=== PATIENT | male | born 1935 | race Caucasian/White ===

== ENCOUNTER 2019-04-24 14:51 | Inpatient (IN) | payer MEDICARE, OTHER ==
--- NOTE | 2019-04-24 15:49 | RAD ---
4 views right elbow. HISTORY: Fall. AP, lateral and both oblique views right elbow obtained. 4 views right elbow demonstrate no evidence of right elbow fractures, subluxations or bony lesions. IMPRESSION: normal 4 views right elbow.
--- NOTE | 2019-04-24 15:53 | RAD ---
Lumbar spine 2 views: 04/24/2019 COMPARISON: 11/14/2017 HISTORY: Fall, trauma, pain FINDINGS: As seen on the prior examination, there is lumbar dextroscoliosis. There is multilevel disc space narrowing and lateral osteophyte formation, particularly left-sided, most prominent at L1-2, L2-3, and L3-4. Lateral examination demonstrates multilevel disc space narrowing and degenerative endplate change, mo st prominent at the L5-S1 level. There is a vacuum disc noted at L5-S1. There is multilevel lower lumbar spine facet hypertrophy. No acute lumbar spine fracture. There is atherosclerotic calcificatio n of the abdominal aorta and the arterial structures of the pelvis. There is anterolisthesis of L4 on L5 measuring approximately 6 mm. Impression: Lumbar spine degenerative change. No acute lumbar spine fracture.
--- NOTE | 2019-04-24 15:55 | RAD ---
2 views left hip HISTORY: Working yard with fall left hip pain. AP and lateral views left hip is obtained. There is a moderately displaced comminuted left intertrochanteric fracture. The base of the femoral n norris is fractured as well as the lesser trochanter. IMPRESSION: comminuted proximal left femoral intertrochanteric fracture.
--- NOTE | 2019-04-24 16:03 | RAD ---
Frontal radiograph pelvis: 04/24/2019 HISTORY: Fall, trauma, pain FINDINGS: There is a comminuted intertrochanteric fracture of the proximal left femur. The pelvic rin g is intact with no widening of the sacroiliac joints or the pubic symphysis. IMPRESSION: Comminuted intertrochanteric fracture of the proximal left femur.
[2019-04-24] MEDS ORDERED: Ondansetron PF 4 MG/2 ML Vial ONE (16:21)
[2019-04-24] MEDS ORDERED: Morphine 4 MG/ML VIAL ONE ×2 (16:21→18:11)
--- NOTE | 2019-04-24 18:03 | RAD ---
EXAM: Single view of the chest HISTORY: Fall with chest pain COMPARISON: None FINDINGS: Single view of the chest shows a normal sized cardiomediastinal silhouette. There is no pedro luis dence of consolidation, mass, or pleural effusion. The bones are unremarkable. IMPRESSION: No evidence of acute cardiopulmonary disease
[2019-04-24 18:16] LABS: #Basophils 0.1 thou/uL (0.0-0.2); #Eosinphils 0.1 thou/uL (0.0-0.7); #Lymphocytes 1.3 thou/uL (1.20-3.40); %Basophils 0.4 % (0.0-1.0); %Eosinophils 0.7 % (0.0-10.0); %Lymphocytes 7.8 % (21.0-51.0); %Monocytes 6.2 % (0.0-10.0); %Neutrophils 84.9 % (42.0-75.0); Hemoglobin 15.1 g/dL (14.0-18.0); Mean Corpuscular HGB CONC 32.8 g/dL (32.0-36.0); Mean Corpuscular Hemoglobin 30.8 pg (27.0-31.0); Mean Corpuscular Volume 94.1 fL (78.0-98.0); Mean Platelet Volume 7.5 fL (7.4-10.4); Platelet Count 230 thou/uL (130-400); RBC Distribution Width 12.6 % (11.5-14.5); Red Blood Cell (RBC) Count 4.91 mill/uL (4.70-6.10); White Blood Cell (WBC) Count 16.5 thou/uL (4.8-10.8)
[2019-04-24 18:23] LABS: INR-International Normal Ratio 1.1; PTT 26.4 SEC (22.9-36.1); Prothrombin Time 14.1 SEC (12.0-14.7)
[2019-04-24 18:38] LABS: Magnesium 1.9 mg/dL (1.6-2.6); Phosphorus 2.6 mg/dL (2.3-4.7)
[2019-04-24 18:39] LABS: ALT (SGPT) 27 U/L (8-55); AST (SGOT) 49 U/L (5-34); Albumin 3.9 g/dL (3.4-4.8); Alkaline Phosphatase 67 U/L (40-150); Anion Gap 18 mmol/L (10-20); BUN (Urea Nitrogen) 20 mg/dL (8.4-25.7); Bilirubin, Total 0.6 mg/dL (0.2-1.2); Calc. Creatinine Clearance 0 mL/min (70-130); Calcium 8.9 mg/dL (7.8-10.44); Carbon Dioxide 18 mmol/L (23-31); Chloride 106 mmol/L (98-107); Estimated GFR-MDRD 79; Globulin 2.8 g/dL (2.4-3.5); Glucose 107 mg/dL (83-110); Protein, Total 6.7 g/dL (5.8-8.1); Sodium 138 mmol/L (136-145)
[2019-04-24] MEDS ORDERED: hydrALAZINE 20 MG/ML VIAL SLOW IVP PRN (18:47)
[2019-04-24] MEDS ORDERED: Dextrose 5% in Water 1,000 ML IV PRN (18:47)
[2019-04-24] MEDS ORDERED: Ondansetron ODT 4 MG TAB PO PRN (18:47)
[2019-04-24] MEDS ORDERED: Ondansetron PF 4 MG/2 ML Vial IVP PRN (18:47)
[2019-04-24] MEDS ORDERED: Dextrose 50% Abboject 50 ML SYRINGE SLOW IVP PRN (18:47)
[2019-04-24] MEDS ORDERED: traMADol HCl 50 MG TAB PO PRN (18:52)
[2019-04-24] MEDS ORDERED: Acetaminophen 500 MG TAB PO SCH (19:00)
[2019-04-24] MEDS ORDERED: Ibuprofen 600 MG TAB PO SCH ×2 (19:00→22:15)
[2019-04-24] MEDS ORDERED: traMADol HCl 50 MG TAB PO SCH (19:00)
[2019-04-24] MEDS ORDERED: Ketorolac Tromethamine 15 MG/ML VIAL IVP SCH (19:00)
[2019-04-24] MEDS ORDERED: Morphine 2 MG/ML SYRINGE SLOW IVP PRN (19:01)
[2019-04-24] MEDS ORDERED: Ketorolac Tromethamine 30 MG/ML VIAL IVP SCH (19:15)
[2019-04-24] MEDS: Senokot S 8.6-50 MG TAB PO SCH (22:00)
[2019-04-24] MEDS: Sodium Chloride 0.9% 1,000 ML IV SCH (22:31)
[2019-04-24] MEDS: traMADol HCl 50 MG TAB PO SCH (23:02)
[2019-04-24] MEDS: Acetaminophen 500 MG TAB PO SCH (23:02)
[2019-04-25 00:38] VITALS: BMI 25.7
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
[2019-04-25] MEDS: Sodium Chloride 0.9% 1,000 ML IV SCH ×3 (04:14→18:18)
[2019-04-25] MEDS: Ibuprofen 600 MG TAB PO SCH ×3 (05:02→21:01)
[2019-04-25] MEDS: Acetaminophen 500 MG TAB PO SCH ×3 (05:02→18:27)
[2019-04-25] MEDS: traMADol HCl 50 MG TAB PO SCH ×3 (05:03→18:23)
[2019-04-25] MEDS: Morphine 4 MG/ML VIAL SLOW IVP PRN ×2 (05:35→10:34)
[2019-04-25 05:53] LABS: #Eosinphils 0.1 thou/uL (0.0-0.7); #Lymphocytes 1.7 thou/uL (1.20-3.40); #Neutrophils 6.8 thou/uL (1.40-6.50); %Basophils 0.5 % (0.0-1.0); %Eosinophils 1.4 % (0.0-10.0); %Lymphocytes 17.2 % (21.0-51.0); %Monocytes 10.6 % (0.0-10.0); %Neutrophils 70.3 % (42.0-75.0); Hemoglobin 12.8 g/dL (14.0-18.0); Mean Corpuscular HGB CONC 32.9 g/dL (32.0-36.0); Mean Corpuscular Hemoglobin 30.5 pg (27.0-31.0); Mean Corpuscular Volume 92.8 fL (78.0-98.0); Mean Platelet Volume 7.9 fL (7.4-10.4); Platelet Count 208 thou/uL (130-400); RBC Distribution Width 12.6 % (11.5-14.5); Red Blood Cell (RBC) Count 4.21 mill/uL (4.70-6.10); White Blood Cell (WBC) Count 9.7 thou/uL (4.8-10.8)
[2019-04-25 06:06] LABS: Anion Gap 9 mmol/L (10-20); BUN (Urea Nitrogen) 23 mg/dL (8.4-25.7); Calc. Creatinine Clearance 67 mL/min (70-130); Carbon Dioxide 25 mmol/L (23-31); Chloride 107 mmol/L (98-107); Estimated GFR-MDRD 81; Glucose 110 mg/dL (83-110); Magnesium 1.9 mg/dL (1.6-2.6); Phosphorus 3.7 mg/dL (2.3-4.7); Sodium 137 mmol/L (136-145)
[2019-04-25] MEDS ORDERED: CEFAZOLIN 2 GM in Premix Bag 1 BAG IVPB SCH (07:15)
--- NOTE | 2019-04-25 09:08 | PDOC.GSPN ---
Surgery Progress Note: Subj - Subjective Narrative: Patient seen and examined. Pain controlled. Surgery today Surgery Progress Note: Obj - Vital signs Vital signs: Vital Signs - Most Recent Temp Pulse Resp BP Pulse Ox 97.7 F 68 12 112/55 L 94 L 04/25/19 07:20 04/25/19 07:20 04/25/19 07:20 04/25/19 07:20 04/25/19 07:20 - Physical Exam General: no distress Cardiovascular: regular rate and rhythm Respiratory: clear to auscultation Surgery Progress Note: Results - Labs Result Diagrams: 04/25/19 04:22 04/25/19 04:22 Lab results: Laboratory Results - last 24 hr 04/25/19 04/25/19 04:22 04:22 WBC 9.7 RBC 4.21 L Hgb 12.8 L Hct 39.1 L MCV 92.8 MCH 30.5 MCHC 32.9 RDW 12.6 Plt Count 208 MPV 7.9 Neutrophils % 70.3 Lymphocytes % 17.2 L Monocytes % 10.6 H Eosinophils % 1.4 Basophils % 0.5 Neutrophils # 6.8 H Lymphocytes # 1.7 Monocytes # 1.0 H Eosinophils # 0.1 Basophils # 0.0 Sodium 137 Potassium 4.0 Chloride 107 Carbon Dioxide 25 Anion Gap 9 L BUN 23 Creatinine 0.90 Estimated GFR (MDRD) 81 Glucose 110 Calcium 9.0 Phosphorus 3.7 Magnesium 1.9 Surgery Progress Note: A/P - Problem (1) Hip fracture Current Visit: Yes Code(s): S72.009A - FRACTURE OF UNSP PART OF NECK OF UNSP FEMUR, INIT Status: Acute - Plan Plan: To OR today Rehab screen
[2019-04-25] MEDS: Ferrous Sulfate 325 MG TAB PO SCH ×2 (10:13→18:26)
[2019-04-25] MEDS: Ascorbic Acid 500 mg Chewable Tablet PO SCH ×2 (10:14→20:54)
[2019-04-25] MEDS: Polyethylene Glycol 3350 17 GM Packet PO SCH (10:14)
[2019-04-25] MEDS: Senokot S 8.6-50 MG TAB PO SCH ×2 (10:15→20:54)
[2019-04-25] MEDS: Tamsulosin HCl 0.4 MG CAP PO SCH ×2 (10:17→18:32)
--- NOTE | 2019-04-25 11:08 | CON ---
DATE OF CONSULTATION: 04/24/2019 REQUESTING PHYSICIAN: Gentry Hall MD BRIEF HISTORY OF PRESENT ILLNESS: The patient is a pleasant 83-year-old gentleman who was examined in the emergency room at [facility] at the request of Dr. Gentry Hall. The patient reports that he was working on his land, cutting down and trimming some trees when he caught his foot tangled in some verena, fell, landing on the left hip. He reports immediate pain and inability to ambulate. Upon arrival at [facility], x-rays demonstrated an intertrochanteric femur fracture with displacement. The patient also found to have some mild skin tears at the right elbow. The patient now admitted to the Trauma Service and Orthopedic consultation requested. PAST MEDICAL HISTORY: Remarkable for chronic low back pain as well as some urinary retention. PAST SURGICAL HISTORY: Includes transurethral resection of prostate, back surgery, left knee replacement, right knee replacement, tonsillectomy, cholecystectomy, as well as cervical spine fusion. MEDICATIONS: Flomax. ALLERGIES: NONE KNOWN. SOCIAL HISTORY: He lives at home alone. He is able to care for himself. He does not use assistive devices for ambulation. He denies alcohol, tobacco, or drug use. FAMILY HISTORY: Noncontributory. REVIEW OF SYSTEMS: Denies recent fevers, chills, or sweats. Denies chest pain or shortness of breath. Denies numbness or tingling in the lower extremity. PHYSICAL EXAMINATION: VITAL SIGNS: His heart rate is 83, respiratory rate of 18, temperature 98, and blood pressure 172/99 in the emergency room. HEENT: Atraumatic and normocephalic. HEART: Shows a regular rate and rhythm without murmur. LUNGS: Clear to auscultation bilaterally with good breath sounds. Chest wall is nontender. ABDOMEN: Flat and nontender with normal bowel sounds. PELVIS: Stable to compression with no pain, except mild referred pain to the left hip. EXTREMITIES: Remarkable for a left upper extremity that is atraumatic. The right upper extremity with a lateral elbow skin avulsion, but otherwise no bony deformity at the upper arm, forearm, or hand. The right lower extremity is atraumatic at hip, knee, ankle, and foot. The left lower extremity is remarkable for a hip, that is held externally rotated and slightly shortened. The knee itself appears atraumatic with a well-healed anterior midline incision. Ankle and foot also atraumatic. He has intact sensation distally. He is able to wiggle his toes comfortably. His thigh and lower leg compartments are soft. X-RAYS: While in the emergency room, a four-view elbow x-ray was obtained that shows normal bony anatomy with no evidence of fracture. Two-view left hip as well as AP pelvis x-ray also obtained. These show an intertrochanteric femur fracture with extension into the lesser trochanter. LABORATORY DATA: He was found to have a white count of 16.5, a hematocrit of 46.2, and 230,000 platelets. ASSESSMENT: An 83-year-old gentleman, status post ground level fall sustaining left intertrochanteric femur fracture. PLAN: At this time, the patient will be admitted to the Trauma Service. I would like to make him n.p.o. after midnight with plans to proceed to the operating room tomorrow early afternoon for anticipated intramedullary hip screw for this intertrochanteric femur fracture. Today, I discussed with the patient risks and benefits of the procedure. Risks include, but are not limited to bleeding, infection, nerve injury, DVT, PE, malunion, nonunion, loss of limb or life. The patient appears to understand and does wish to proceed. Written consent will be obtained prior to surgery. Job ID: [id number]
[2019-04-25] MEDS ORDERED: Fentanyl 100 MCG/2 ML VIAL ONE ×3 (12:12→14:09)
--- NOTE | 2019-04-25 13:30 | RAD ---
XR Hip Lt 2-3 View History: ORIF Comparison: Radiograph prior day Findings: Satisfactory postoperative appearance intramedullary nail through the intertrochanteric fra cture left femur. Impression: Satisfactory postoperative appearance.
[2019-04-25] MEDS ORDERED: Promethazine HCl 25 MG/ML VIAL ONE (13:49)
[2019-04-25] MEDS ORDERED: Promethazine HCl 25 MG/ML VIAL SLOW IVP PRN (13:52)
[2019-04-25] MEDS ORDERED: Promethazine HCl 25 MG/ML VIAL IM PRN (13:52)
[2019-04-25] MEDS ORDERED: PACU-Morphine 4MG/ML VIAL SLOW IVP PRN (13:52)
[2019-04-25] MEDS ORDERED: Ketorolac Tromethamine 30 MG/ML VIAL IVP PRN (13:52)
[2019-04-25] MEDS ORDERED: Rocuronium Bromide 10 MG/ML (10ML VIAL) ONE (17:07)
[2019-04-25] MEDS ORDERED: PROPOFOL 200 MG/20 ML VIAL ONE (17:07)
[2019-04-25] MEDS ORDERED: Glycopyrrolate 0.2 MG/ML 5 ML SYRINGE ONE (17:07)
[2019-04-25] MEDS ORDERED: Lidocaine 1% PF 5 ML VIAL ONE (17:07)
[2019-04-25] MEDS ORDERED: ePHEDrine 50 MG/ML VIAL ONE (17:07)
[2019-04-25] MEDS ORDERED: Ondansetron PF 4 MG/2 ML Vial ONE (17:07)
[2019-04-25] MEDS: CEFAZOLIN 2 GM in Premix Bag 1 BAG IVPB SCH (20:51)
--- NOTE | 2019-04-25 23:16 | OP ---
DATE OF PROCEDURE: 04/25/2019 PREOPERATIVE DIAGNOSIS: Left intertrochanteric femur fracture. POSTOPERATIVE DIAGNOSIS: Left intertrochanteric femur fracture. PROCEDURE PERFORMED: Short TFN nail, left femur. ANESTHESIA: General. COMMUNICATIONS CLERK: Benoit Donald PA-C. ESTIMATED BLOOD LOSS: 50 mL. IMPLANT: Synthes TFN 12 x 170 mm nail with 100 mm hip screw. COMPLICATIONS: None. DRAINS: None. SPECIMEN: None. OUTCOME: Near-anatomic alignment. INDICATIONS: The patient is an 83-year-old gentleman status post ground level fall sustaining a left intertrochanteric femur fracture. After discussion with the patient including risks and benefits, we have decided to proceed with intramedullary hip screw placement. Informed consent has been obtained. I believe all questions have been answered. DESCRIPTION OF PROCEDURE: The patient was brought to the operating room and a time-out was performed followed by induction of general anesthesia. Next, the patient was positioned supine on the OR table and then a sterile prep and drape was performed in the left lateral thigh after the leg was brought into extension and gentle longitudinal traction. Next, a small incision was made proximal to the tip of the greater trochanter. After the skin was sharply incised, dissection was carried down bluntly to the underlying tip of the trochanter. A threaded guidewire was then inserted from the tip of the greater trochanter down the proximal femoral canal. Once appropriately positioned, a reamer was passed over the top of this guidewire to open the tip of the greater trochanter for eventual nail acceptance. Next, a 12 x 170 mm nail was passed down the canal and delivered to an appropriate depth. This was followed by placement of a second incision distal to the first and then the hip screw jig was brought up against the lateral cortex of the femur. A threaded guidewire was then inserted through the lateral cortex of the femur up the femoral neck into the femoral head approaching a [id number] position. Once appropriately positioned, measurement was taken off this pin and then a step reamer was used to further prepare the femoral neck and head to accept the hip screw. A 100 mm hip screw was then delivered up into the femoral neck and head as checked under C-arm guidance. Gentle compression was then applied across the fracture site. Once appropriately positioned, the jig was removed from the hip screw and then a third more distal incision was made and a single distal cross-lock screw inserted. At the completion of this, the jig was removed from the top of the nail and final AP and lateral C-arm images were obtained that showed near-anatomic alignment of the fracture and appropriate positioning of hardware. The three small wounds were then irrigated with normal saline and closed in layers with 2-0 Vicryl and blue for the skin. Xeroform gauze and tape dressing were applied to the lateral thigh and then the patient was transferred to recovery room in stable condition. There were no complications. The patient tolerated the procedure well. Job ID: [id number]
[2019-04-26] MEDS: Sodium Chloride 0.9% 1,000 ML IV SCH (00:39)
[2019-04-26] MEDS: Acetaminophen 500 MG TAB PO SCH ×4 (00:40→17:12)
[2019-04-26] MEDS: traMADol HCl 50 MG TAB PO SCH ×4 (00:40→17:15)
[2019-04-26] MEDS: CEFAZOLIN 2 GM in Premix Bag 1 BAG IVPB SCH ×3 (03:39→19:25)
[2019-04-26] MEDS: Ibuprofen 600 MG TAB PO SCH ×3 (05:26→20:28)
[2019-04-26] MEDS ORDERED: traMADol HCl 50 MG TAB PO PRN (07:28)
[2019-04-26] MEDS: Ferrous Sulfate 325 MG TAB PO SCH ×2 (09:43→17:12)
[2019-04-26] MEDS: Aspirin 81 mg Enteric Coated Tablet PO SCH ×2 (09:54→20:28)
[2019-04-26] MEDS: Ascorbic Acid 500 mg Chewable Tablet PO SCH ×2 (09:54→20:27)
[2019-04-26] MEDS: Tamsulosin HCl 0.4 MG CAP PO SCH (09:55)
[2019-04-26] MEDS: Senokot S 8.6-50 MG TAB PO SCH ×2 (09:55→20:28)
[2019-04-26] MEDS: Polyethylene Glycol 3350 17 GM Packet PO SCH (09:55)
--- NOTE | 2019-04-26 10:07 | PRG ---
DATE OF SERVICE: 04/26/2019 SUBJECTIVE: The patient was seen this morning sitting up in bed. Reported no acute events overnight. Pain is well controlled. Tolerating a regular diet. Working with Physical and Occupational Therapy. The patient does live at home independently and is interested in being placed at rehab for further physical and occupational therapy. OBJECTIVE: VITAL SIGNS: Temperature 97.9, pulse 81, respirations 12, oxygen saturation 92% on room air, blood pressure 121/63. LABORATORY FINDINGS: There are no new laboratory findings to discuss. DIAGNOSTIC FINDINGS: There are no new diagnostic findings to discuss. ASSESSMENT: 1. Status post mechanical fall from standing. 2. Left intertrochanteric femur fracture, status post repair. 3. Elbow abrasion and skin tear, stable. 4. Urinary retention. PLAN: The patient is to continue to receive physical and occupational therapy. Normal saline IV was discontinued today. Corbin placed overnight by Ortho Service for urinary retention. The patient currently on home Flomax, we will continue that. Discontinue Corbin in 24 to 48 hours, and perform void trial. This can be done at rehab, if needed. The patient is back on all of his home medications. Discontinue all IV medications and transition to completely p.o. medications. The patient was seen and evaluated by Dr. Moody and myself this morning during rounds. Job ID: [id number]
[2019-04-27] MEDS: traMADol HCl 50 MG TAB PO SCH ×3 (00:05→12:13)
[2019-04-27] MEDS: Acetaminophen 500 MG TAB PO SCH ×3 (00:05→12:09)
[2019-04-27] MEDS: CEFAZOLIN 2 GM in Premix Bag 1 BAG IVPB SCH (03:11)
[2019-04-27] MEDS: Ibuprofen 600 MG TAB PO SCH (05:11)
[2019-04-27 05:18] LABS: #Basophils 0.1 thou/uL (0.0-0.2); #Eosinphils 1.1 thou/uL (0.0-0.7); #Lymphocytes 1.2 thou/uL (1.20-3.40); #Monocytes 1.1 thou/uL (0.11-0.59); #Neutrophils 7.6 thou/uL (1.40-6.50); %Basophils 0.6 % (0.0-1.0); %Eosinophils 10.1 % (0.0-10.0); %Lymphocytes 10.8 % (21.0-51.0); %Monocytes 9.6 % (0.0-10.0); %Neutrophils 68.9 % (42.0-75.0); Hemoglobin 11.7 g/dL (14.0-18.0); Mean Corpuscular HGB CONC 32.9 g/dL (32.0-36.0); Mean Corpuscular Hemoglobin 30.7 pg (27.0-31.0); Mean Corpuscular Volume 93.4 fL (78.0-98.0); Mean Platelet Volume 8.1 fL (7.4-10.4); Platelet Count 163 thou/uL (130-400); RBC Distribution Width 12.6 % (11.5-14.5)
[2019-04-27 05:40] LABS: Anion Gap 10 mmol/L (10-20); BUN (Urea Nitrogen) 16 mg/dL (8.4-25.7); Calc. Creatinine Clearance 82 mL/min (70-130); Calcium 8.5 mg/dL (7.8-10.44); Carbon Dioxide 24 mmol/L (23-31); Chloride 107 mmol/L (98-107); Estimated GFR-MDRD Greater than 90; Glucose 94 mg/dL (83-110); Magnesium 1.6 mg/dL (1.6-2.6); Potassium 3.7 mmol/L (3.5-5.1); Sodium 137 mmol/L (136-145)
[2019-04-27] MEDS ORDERED: Magnesium 2 GM/50 ML 2 GM in Premix Bag 1 BAG IVPB SCH (08:00)
[2019-04-27] MEDS ORDERED: PHOS-NAK 1 PKT PACK PO SCH (08:00)
[2019-04-27] MEDS: Ascorbic Acid 500 mg Chewable Tablet PO SCH (08:30)
[2019-04-27] MEDS: Tamsulosin HCl 0.4 MG CAP PO SCH (08:30)
[2019-04-27] MEDS: Ferrous Sulfate 325 MG TAB PO SCH (08:30)
[2019-04-27] MEDS: Senokot S 8.6-50 MG TAB PO SCH (08:30)
[2019-04-27] MEDS: Polyethylene Glycol 3350 17 GM Packet PO SCH (08:30)
[2019-04-27] MEDS: Aspirin 81 mg Enteric Coated Tablet PO SCH (08:30)
[2019-04-27 11:47] VITALS: BP 134/67; TEMP 97.9
--- NOTE | 2019-04-27 12:52 | DIS ---
DATE OF ADMISSION: 04/24/2019 DATE OF DISCHARGE: 04/27/2019 ADMISSION DIAGNOSES: Status post mechanical fall, left intertrochanteric femur fracture, left elbow avulsion, and skin tear. DISCHARGE DIAGNOSES: Status post mechanical fall, left intertrochanteric femur fracture, left elbow avulsion, and skin tear with addition of urinary retention. CONSULTING PHYSICIAN: Dr. Cortez of Orthopedic Surgery. PROCEDURES: The patient went to the OR on April 25, 2019, and the patient received a short TFN nail of the left femur. HOSPITAL COURSE: The patient is an 83-year-old male who presented to the emergency department after mechanical fall when he was picking up branches at his home. The patient reported left hip pain, and it was discovered that he had a left intertrochanteric femur fracture and elbow abrasion with soft tissue skin tear. He was admitted to the hospital, and the patient went to the OR with Dr. Cortez on the , who received a short TFN nail of the left femur. Postoperatively, he worked with Physical and Occupational Therapy. He did have some urinary retention, difficulty voiding postoperatively, and a Corbin catheter was replaced. He was also on his home Flomax at that time. The patient worked with Physical and Occupational Therapy, and it was determined that rehab was the appropriate discharge plan for him. At the time of discharge, the patient's pain was well controlled. He was working with Physical and Occupational Therapy, ambulating with assistance and a walker. He had a Corbin in place with a plan to have it removed on April 28, and he was having bowel movements without difficulties. DISCHARGE DISPOSITION: Acute rehab. DISCHARGE CONDITION: Satisfactory. PHYSICAL EXAMINATION: VITAL SIGNS: Temperature 98.1, pulse 75, respirations 14, oxygen saturation is 94% on room air, and blood pressure 132/68. GENERAL: Well-appearing elderly male, lying in bed with no signs of acute distress. PULMONARY: Equal chest rise and fall. Clear breath sounds bilaterally. No signs of acute respiratory distress. CARDIAC: Regular rate and rhythm. No murmurs, gallops, or rubs. GASTROINTESTINAL: Soft, nontender, nondistended. EXTREMITIES: 2+ pulses in all extremities. No significant swelling noted. Dressing to left thigh is clean, dry, and intact with no signs of infection. NEURO: GCS is 15. Gross motor and sensation intact. DISCHARGE INSTRUCTIONS: The patient was discharged to acute inpatient rehab. Activity as tolerated and weightbearing as tolerated in all extremities. Regular diet with no restrictions. He is to receive physical and occupational therapy and use a walker. He has a Corbin that is in place for urinary retention until April 28, 2019, when a void trial can be completed. DISCHARGE MEDICATIONS: Include: 1. Tylenol. 2. Vitamin C. 3. Aspirin. 4. Ferrous sulfate. 5. Ibuprofen. 6. MiraLAX. 7. Senokot-S. 8. Flomax. 9. Tramadol. 10. Tums. 11. Flonase nasal spray. 12. Zantac. FOLLOWUP APPOINTMENTS: The patient is to follow up with Dr. Cortez in 10 days. This is merely a summary of the patient's hospitalization. For full details, please see his medical record in its entirety. Job ID: [id number]
--- NOTE | 2019-04-27 16:51 | EKG ---
Test Reason : Blood Pressure : / mmHG Vent. Rate : 078 BPM Atrial Rate : 078 BPM P-R Int : 154 ms QRS Dur : 134 ms QT Int : 416 ms P-R-T Axes : 077 049 019 degrees QTc Int : 474 ms Normal sinus rhythm Right bundle branch block Abnormal ECG Confirmed by GIOVANY MANCIA, JEAN King ([id number]), marketing editor QUETA CALLOWAY ([id number]) on 04/27/2019 4:51:24 PM Referred By: Confirmed By:JEAN ADAIR MD
== END 2019-04-27 13:11 | DRG 482 ==
LOC: ERS 14:51 → SJJU 18:00
PROVIDERS: ADMIT Specialist; ATTEND Specialist
PROC: 0QH706Z Insertion of Intramedullary Internal Fixation Device into Left Upper Femur, Open Approach (ICD-10-PCS; principal; 2019-04-25)
PROC: 0T9B70Z Drainage of Bladder with Drainage Device, Via Natural or Artificial Opening (ICD-10-PCS; 2019-04-26)
DX: S72.102A Unspecified trochanteric fracture of left femur, initial encounter for closed fracture (principal); W18.39XA Other fall on same level, initial encounter; G89.29 Other chronic pain; S50.312A Abrasion of left elbow, initial encounter; R33.9 Retention of urine, unspecified; Z96.653 Presence of artificial knee joint, bilateral; Z87.81 Personal history of (healed) traumatic fracture; Y93.89 Activity, other specified; Z90.49 Acquired absence of other specified parts of digestive tract; Z98.890 Other specified postprocedural states
CPT/HCPCS: 36415; 71045; 72100; 72170; 76000; 80048; 80053; 83735; 84100; 85025; 85610; 85730; 86850; 86900; 86901; 93005; 96374; 96375; 96376; C1713; G0390; J0131; J0690; J1885; J2270; J2405; J2550; J3010; J3475

== ENCOUNTER 2019-08-07 08:12 | Outpatient (CLI) | payer MEDICARE, OTHER ==
--- NOTE | 2019-08-07 10:53 | RAD ---
Exam: Barium enema with air-contrast: HISTORY: Chronic constipation FINDINGS: Extensive lumbar spine spondylosis and postop changes at L4-L5. Minimal retained fecal material seen on domestic freight forwarder film imaging. Colonic diverticulosis noted particularly in the sigmoid colon. Contrast media progressed throughout the colon with reflux into a normal-appearing terminal ileum. There is also minimal filling of a normal-appearing appendix. No stricture ulcer or mass. IMPRESSION: Sigmoid colon diverticulosis. No mass, ulcer, or other significant acute process.
== END 2019-08-07 08:13 | disposition home or self-care (01) ==
LOC: RAD 08:12
PROVIDERS: ATTEND Physician Assistant Medical
DX: K59.09 Other constipation (principal); K57.30 Diverticulosis of large intestine without perforation or abscess without bleeding
CPT/HCPCS: 74280

== ENCOUNTER 2020-07-19 10:34 | Observation (INO) | payer MEDICARE, OTHER ==
--- NOTE | 2020-07-19 11:56 | PDOC.FPRHP ---
- History of Present Illness Chief Complaint: lightheadedness History of Present Illness: 85YOM with a PMH notable for Hx of melanoma who presented for an evaluation for lightheadedness with an associated abnormal heart beat. Patient reports that overnight he experienced an episode of lightheadedness while standing up followed by a notification on his apple watch that said his EKG was "inconclusive". He reports that this has happened before-approximately 1X/month- and his watch will say inconclusive but he'll feel better and the watch will go back to reading his HR. This time he continued to feel dizzy and his watch continued to read inconclusive so he went to [place] [facility]. ED Course: In ED patient received ASA. - Allergies/Adverse Reactions Allergies Allergy/AdvReac Type Severity Reaction Status Date / Time hydrocodone [Hydrocodone] Allergy Severe "seeing Verified 04/25/19 00:55 colors" oxycodone Allergy Severe Verified 04/25/19 01:14 ALMONDS Allergy Intermediate "in Uncoded 08/30/16 08:42 allergy season--they make me whezzy" - Home Medications Medication Instructions Recorded Confirmed Type Tamsulosin HCl [Flomax] 0.4 mg PO DAILY cap 04/27/19 07/19/20 Rx Bisacodyl [Dulcolax] 10 mg PO DAILY 07/19/20 07/19/20 History Melatonin PO HS 07/19/20 History Omeprazole 20 mg PO DAILY 07/19/20 07/19/20 History - History PMHx: Hx Melanoma, BPH PSHx: B/L knee replacement, Femur fx repair, Moh's sx for L forehead melanoma, TURP FHx: Mom- from metastatic colon CA at age 73 Social: Quit smoking many years ago. No EtOH or drug use. Lives at home alone in [place], [place]. - Review of Systems General: denies: fever/chills Eyes: denies: vision changes ENT: reports: rhinorrhea Respiratory: denies: cough, shortness of breath Cardiovascular: denies: chest pain, palpitation Gastrointestinal: reports: constipation. denies: nausea, vomiting Skin: denies: rashes, lesions Musculoskeletal: denies: arthritis/arthralgias Neurological: reports: other (no headache) - Vital signs BP: 187/99 HR: 78 RR: 12 Tmax: 98.8 Pox: 99% on RA Wt: 75 kg - Physical Exam Constitutional: NAD, awake, alert and oriented HEENT: normocephalic and atraumatic, grossly normal vision, grossly normal hearing Neck: supple, FROM Heart: RRR, normal S1/S2, no murmurs/rubs/gallops, no edema Lungs: CTAB, no respiratory distress, good air movement, no rales/rhonchi, no wheezing, no retractions Abdomen: soft, non-tender, bowel sounds present, no masses/distention Musculoskeletal: normal structure, ROM grossly normal Neurological: no focal deficit, CN II-XII intact (grossly) Skin: no rash/lesions Heme/Lymphatic: no unusual bruising or bleeding, no purpura Psychiatric: normal mood and affect, good judgment and insight, intact recent and remote memory FMR H&P: Results - Labs Lab results: Trop 0.1 -> <0.01 - EKG Interpretation EKG: multiple PVCs, regular rate and rhythm FMR H&P: A/P - Plan Presyncope - Likely orthostasis vs arrhythmia - Patient reports episodes occur while standing, in the ED room, patient reported an episode after he stood up to use the restroom - admit to tele obs - Check electrolytes-Mg, Phos - Check TSH - Consider ECHO depending on tele strips/sx HTN - pt denies history, 180-190 SBP in ED - PRN medications - Start PO medications in AM after watching trend BPH - Home flomax Constipation - Home dulcolax PRN, Senokot PRN PCP: Chuck-LEDA DVT ppx: SCD GI ppx: TUMS Code: FUll Dispo: eLOS <48 hrs, will be ready to dc pending cessation of symptoms and stable VS. FMR H&P: Upper Level - Plan Date/Time: 07/19/20 1156 IKyung, have evaluated this patient and agree with findings/plan as outlined by integrated marketing intern resident. Pertinent changes/additions are listed here. 85YOM with a PMH notable for BPH who presented to the ED as a transfer from the [place] ER after presenting there for evaluation for an abnormal heart rhythm with associated lightheadedness. Reports he was at home last night and suddenly felt lightheaded like he was going to pass. He then got an EKG alert on his watch that was abnormal. He reports that this has happened before but normally the repeat is back to normal; however, this time the repeat was abnormal so he decided to come in for evaluation. All other ROS was negative other than some hay fever symptoms. On exam his VS were WNLs with the exception of an elevated BP of 173/101. His physical exam was unremarkable. Labs were notable for an initial indeterminate troponin I of 0.113 that downtrended to <0.010. EKG was notable for sinus at a rate of 80 with frequent PVCs & a RBBB. Plan will be to continue monitoring overnight on telemetry. Will check a Mg, phos, & TSH level as well. Lastly, will obtain orthostatic vitals. Regarding his elevated BP will add PRNs & likely start on JENNIFER meds in the AM pending trend overnight. Anticipated LOS <48 hours pending hospital course. PPX: SCDs & tums. FULL CODE. PCP: CC. Chuck Addendum - Attending - Attending Attestation Date/Time: 07/19/201799 I personally evaluated the patient and discussed the management with Dr. Mayen/ Syed. I agree with the History, Examination, Assessment and Plan documented above with any addition or exceptions noted below.
[2020-07-19 12:55] LABS: Bilirubin Negative (Negative); Blood, Urine Negative (Negative); Clarity Clear (Clear); Glucose, Urine (Dipstick) Normal (Negative); Ketone, Urine Negative (Negative); Leukocyte Negative Leu/uL (Negative); Nitrite Negative (Negative); Protein, Urine (Dipstick) Negative (Neg-Trace); Specific Gravity, Urine 1.007 (1.002-1.036); Urobilinogen Normal mg/dL (Less than 2); pH, Urine 5.5 (5.0-9.0)
[2020-07-19] MEDS ORDERED: Acetaminophen 325 MG TAB PO PRN (12:58)
[2020-07-19] MEDS ORDERED: Bisacodyl 5 MG TAB PO PRN (12:58)
[2020-07-19] MEDS ORDERED: Acetaminophen 650 MG Suppository PR PRN (12:58)
[2020-07-19] MEDS ORDERED: Senokot S 8.6-50 MG TAB PO PRN (12:58)
[2020-07-19] MEDS ORDERED: Calcium Carbonate 500 MG ChewTAB PO PRN (12:58)
[2020-07-19] MEDS ORDERED: Labetalol HCl 100 MG/20 ML VIAL SLOW IVP PRN (13:09)
[2020-07-19] MEDS ORDERED: hydrALAZINE 20 MG/ML VIAL SLOW IVP PRN (13:09)
[2020-07-19] MEDS ORDERED: Fluticasone Propionate Nasal Spray 16 gm Bottle NASAL PRN (13:11)
[2020-07-19 13:46] VITALS: BMI 25.0
[2020-07-19 14:47] LABS: Phosphorus 2.8 mg/dL (2.3-4.7)
[2020-07-19] MEDS: Famotidine 20 MG TAB PO SCH (20:02)
[2020-07-19] MEDS ORDERED: Aspirin 81 mg Enteric Coated Tablet PO SCH (21:00)
[2020-07-19] MEDS ORDERED: Melatonin 3 MG TAB PO SCH (21:00)
[2020-07-20 04:32] LABS: #Basophils 0.1 thou/uL (0.0-0.2); #Eosinphils 0.7 thou/uL (0.0-0.7); #Lymphocytes 1.7 thou/uL (1.20-3.40); #Monocytes 0.8 thou/uL (0.11-0.59); %Eosinophils 9.3 % (0.0-10.0); %Lymphocytes 23.4 % (21.0-51.0); %Neutrophils 55.3 % (42.0-75.0); Hemoglobin 12.9 g/dL (14.0-18.0); Mean Corpuscular HGB CONC 31.6 g/dL (32.0-36.0); Mean Corpuscular Hemoglobin 29.7 pg (27.0-31.0); Mean Corpuscular Volume 93.9 fL (78.0-98.0); Mean Platelet Volume 8.1 fL (7.4-10.4); Platelet Count 236 thou/uL (130-400); RBC Distribution Width 12.7 % (11.5-14.5); Red Blood Cell (RBC) Count 4.36 mill/uL (4.70-6.10); White Blood Cell (WBC) Count 7.2 thou/uL (4.8-10.8)
[2020-07-20 04:51] LABS: Anion Gap 10 mmol/L (10-20); BUN (Urea Nitrogen) 14 mg/dL (8.4-25.7); Calc. Creatinine Clearance 60 mL/min (70-130); Calcium 8.4 mg/dL (7.8-10.44); Carbon Dioxide 24 mmol/L (23-31); Chloride 109 mmol/L (98-107); Estimated GFR-MDRD 75; Glucose 99 mg/dL (83-110); Potassium 3.9 mmol/L (3.5-5.1); Sodium 139 mmol/L (136-145)
--- NOTE | 2020-07-20 07:22 | PDOC.FM ---
- Subjective Subjective: Mr. Krishna is doing well this morning and has no complaints. He has been up and walking around and has not had anymore sx on standing. He endorses a "weird " feeling in the back of his head that feels like a "minor NOEL or some lightheadedness" but is unable to describe quantity/fz of occurrence or transforming factors. He denies dyspnea/SOB/CP/palpitations/edema. - Objective Vital Signs & Weight: Vital Signs (12 hours) Temp Pulse Resp BP Pulse Ox 07/20/20 02:34 98.0 F 85 15 162/86 H 97 07/19/20 19:58 98.1 F 74 22 H 123/78 97 Weight Weight 74.797 kg I&O: 07/19/20 07/20/20 07/21/20 06:59 06:59 06:59 Intake Total 920 Balance 920 Result Diagrams: 07/20/20 04:15 07/20/20 04:15 Phys Exam - Physical Examination Constitutional: NAD (Was walking around unassisted when I saw him.) Neck: supple, full ROM Respiratory: clear to auscultation bilateral Cardiovascular: no significant murmur (difficult to auscultate) Irregular rhythm - inconsistently dropped beats Musculoskeletal: no edema, pulses present (in UE b/l. Did not check LE) Neurological: non-focal, moves all 4 limbs Psychiatric: normal affect, A&O x 3 Skin: no rash Dx/Plan - Plan Plan: 85yo M who presented for a presyncopal episode assoc with "inconclusive EKG" on [place]. Presyncope - Likely orthostasis vs arrhythmia - Patient reports episodes occur while standing that occur ~1/mo and started ~ 6mo ago In the ED room, patient reported an episode after he stood up to use the restroom - Admit to tele obs - Mg, Phos, K, Ca, TSH all nml - UA neg - Orthostatics on 07/19: 187/99 sitting, 186/89 standing, 189/88 supine. Positive d/t >10mmHg drop in DBP Repeat on 07/20: 140/76 sitting, 140/82 standing, 137/75 supine. Negative - Tele shows recurrent PVCs. Pt denied sxs at time of PE Cardiology consulted (07/20). Recs appreciated HTN - Pt denies history but SBP 180-190 in ED - PRN medications - Consider PO medications in AM - Monitor BP BPH - Resume home flomax Constipation - Resume home dulcolax PRN, Senokot PRN PCP: Chuck-LEDA DVT ppx: SCD GI ppx: TUMS Diet: HH Code: FUll Dispo: eLOS <48 hrs, will be ready to dc pending Cardiology recs. Addendum - Attending - Attending Attestation Date/Time: 07/20/20 1350 I personally evaluated the patient and discussed the management with Dr. Jeny Vargas. I agree with the History, Examination, Assessment and Plan documented above with any addition or exceptions noted below. Await cards input, likely dc home.
[2020-07-20] MEDS: Famotidine 20 MG TAB PO SCH (08:48)
[2020-07-20] MEDS ORDERED: Tamsulosin HCl 0.4 MG CAP PO SCH (09:00)
[2020-07-20 11:18] VITALS: BP 112/60; TEMP 97.8
[2020-07-20 11:38] LABS: SARS-CoV-2 MS2 Positive; SARS-CoV-2 N Gene Negative; SARS-CoV-2 S Gene Negative; SARS-CoV-2 by NAA Not Detected (NotDetected); SARS-CoV-2 orf1ab Negative
--- NOTE | 2020-07-20 13:25 | CON ---
DATE OF CONSULTATION: 07/20/2020 REASON FOR CONSULTATION: PVCs. HISTORY OF PRESENT ILLNESS: Mr. Krishna is a very pleasant 85-year-old white gentleman, who comes to the hospital for lightheadedness. He was at a birthday constitution party yesterday of his 1-year-old great grandson and he was out in the heat for several hours; about 5 hours into it, he stood up, he went walking and within about five or six steps, he noticed lightheadedness. He had to hold onto the odom, had to sit down. He checked his Apple watch for rhythm issues and the Apple watch said it was inconclusive and irregular. He has had this in the past, so he gave it a few minutes and it was still irregular, so he decided to come in for evaluation. In the ER, he was evaluated and transferred over to [facility] for further care. He was found to have several PVCs that was what his Apple watch was saying as irregular and inconclusive. On my evaluation, Mr. Krishna feels a lot better. He denies any chest pain, tightness, or pressure. No shortness of breath. He no longer feels lightheaded after IV fluids. PAST MEDICAL HISTORY: 1. History of melanoma. 2. BPH. 3. Gastroesophageal reflux disease. OUTPATIENT MEDICATIONS: 1. Tamsulosin 0.4 mg a day. 2. Dulcolax. 3. Melatonin. 4. Omeprazole 20 mg a day. ALLERGIES: 1. HYDROCODONE MAKES HIM SEE COLORS. 2. OXYCODONE. 3. ALMONDS MAKES HIM WHEEZE. PAST SURGICAL HISTORY: 1. Bilateral knee replacement. 2. Femur fracture repair. 3. Mohs surgery for left forehead melanoma. 4. TURP. FAMILY HISTORY: Mother of metastatic colon cancer aged 73. SOCIAL HISTORY: Former smoker, quit many years ago. No alcohol or drugs. REVIEW OF SYSTEMS: A 12-point review of systems was done and was found to be negative other than stated in the history of present illness. PHYSICAL EXAMINATION: VITAL SIGNS: Temperature 97.8, pulse 55, respiratory rate 18, sat 97% on room air, and blood pressure 112/60. Blood pressure supine this morning was 137, and standing 140/82. He was not tilted yesterday. GENERAL: Awake, alert, and oriented x3. No distress. HEENT: Normocephalic and atraumatic. NECK: Supple. LUNGS: Clear. CARDIOVASCULAR: S1 and S2. No S3 or S4. No murmurs. ABDOMEN: Soft. Positive bowel sounds. EXTREMITIES: No edema. SKIN: Warm and dry. LABORATORY DATA: Laboratory work was reviewed. White count of 7, hemoglobin of 12, and hematocrit of 41, platelet count of 236. Coags were reviewed. Chemistries were reviewed. Troponin is undetectable x1. Electrolytes were all normal. Urine was unremarkable. COVID-19 PCR was not detected. Telemetry monitoring was reviewed, sinus rhythm with frequent PVCs. EKG was reviewed. Sinus rhythm with PVCs. ASSESSMENT/PLAN: 1. Lightheadedness, likely orthostatic from being out in the heat, likely some level of fluid depletion. Much better and resolved for now. 2. Frequent PVCs. These will have to be counted. At this time, the PVCs are not the cause of his lightheadedness. We will work them up as an outpatient, but from my perspective he may be discharged home at any time. We will set him up as an outpatient for monitor to count his PVC burden and to screen for ischemia and to do an echo. From the cardiac perspective, he may be discharged home at any point. Thank you for letting us to participate in the care of your patient. We will sign off. Please call with any questions. Job ID: [id number]
--- NOTE | 2020-07-21 04:02 | DIS ---
DATE OF ADMISSION: 07/19/2020 DATE OF DISCHARGE: 07/20/2020 RESIDENT: Nadia Bonilla MD ADMITTING ATTENDING: Jason Kimble MD DISCHARGE ATTENDING: Bishnu Lee MD CONSULTS: Cardiology (Wilfrid Mcfarlane MD) PROCEDURES: Orthostatic vital signs x2. PRIMARY DIAGNOSIS: Presyncope. SECONDARY DIAGNOSES: Hypertension, benign prostatic hypertrophy, constipation, gastroesophageal reflux disease. DISCHARGE MEDICATIONS: 1. Tamsulosin 0.4mg 2. Dulcolax 10 mg. 3. Omeprazole 20 mg. 4. Melatonin 3mg DISCONTINUED MEDICATIONS: None. HISTORY OF PRESENT ILLNESS/HOSPITAL COURSE: Mr. Krishna presented to the ED after an episode of lightheadedness while standing up followed by a notification on his Apple Watch that said his EKG was "inconclusive." He reports this happened before and has been occurring about once per month for the past six months. Normally, his Apple Watch EKG returns to normal within 2 hours, but this time it didn't. He continued to feel dizzy, so he went to [place] [facility] and was transferred here. EKG in the ED showed premature ventricular contractions and right bundle branch block. Troponins were negative and electrolytes, TSH, UA were normal. Systolic blood pressure in the ED was in the 180s, although he denied a history of hypertension. Orthostatic blood pressures obtained on 07/19 showed a change in diastolic blood pressure greater than 10 mmHg. Repeat orthostatics on 07/20 were negative. On telemonitoring, he continued to show recurrent PVCs, although he denied symptoms. Dr. Mcfarlane was consulted, who felt it was safe for the patient to go home and follow up with him in the outpatient setting. DISPOSITION: Stable. DISCHARGE INSTRUCTIONS: Location: Home. Diet: Heart healthy. Activity: As tolerated. Followup: Recommendation to follow up with Chuck (PCP) and Dr. Mcfarlane. Job ID: [id number] [facility]
--- NOTE | 2020-07-21 14:14 | EKG ---
Test Reason : Blood Pressure : / mmHG Vent. Rate : 080 BPM Atrial Rate : 080 BPM P-R Int : 158 ms QRS Dur : 136 ms QT Int : 410 ms P-R-T Axes : 092 067 031 degrees QTc Int : 472 ms Sinus rhythm with frequent Premature ventricular complexes Right bundle branch block Abnormal ECG Confirmed by IVETTE MANCIA, RUSSELL ([id number]), electronic news gathering editor GUSTAVO MCCARTHY ([id number]) on 07/21/2020 2:13:53 PM Referred By: Confirmed By:RUSSELL STEELE MD
== END 2020-07-20 13:56 | disposition home or self-care (01) ==
LOC: ERS 10:34 → 2SW 11:45
PROVIDERS: ADMIT Student in an Organized Health Care Education/Training Program; ATTEND Student in an Organized Health Care Education/Training Program
DX: R42 Dizziness and giddiness (principal); I10 Essential (primary) hypertension; N40.0 Benign prostatic hyperplasia without lower urinary tract symptoms; K21.9 Gastro-esophageal reflux disease without esophagitis; K59.00 Constipation, unspecified; G89.29 Other chronic pain; M54.9 Dorsalgia, unspecified; Z79.899 Other long term (current) drug therapy; Z87.891 Personal history of nicotine dependence; Z88.5 Allergy status to narcotic agent; Z91.010 Allergy to peanuts; Z91.018 Allergy to other foods; Z20.828 Contact with and (suspected) exposure to other viral communicable diseases
CPT/HCPCS: 80048; 81003; 83735; 84100; 84443; 84484; 85025; 85379; 93005; 97139; 99285; U0003; 36415; 87635; G0378

== ENCOUNTER 2020-09-01 11:19 | Outpatient (CLI) | payer MEDICARE, OTHER ==
--- NOTE | 2020-09-01 12:17 | ULT ---
Ultrasound of thethyroid gland: 09/01/2020 COMPARISON:None available HISTORY:Palpable abnormality within the neck TECHNIQUE: Multiplanar grayscale sonographic imaging of thethyroid gland provided FINDINGS:Thyroid isthmus measures 3 mm in AP dimension. The right lobe measures 1.6 x 3.8 x 1.8 cm an d the left lobe measures 1.5 x 3.6 x 1.5 cm. The thyroid parenchyma is markedly heterogeneous with no discrete/dominant nodule seen. There is a sm all 5-6 mm calcification and/or small lymph node posterior to the right lobe of the thyroid gland. IMPRESSION:Markedly heterogeneous thyroid parenchyma with no discrete/dominant thyroid nodule seen.
== END 2020-09-01 11:20 | disposition home or self-care (01) ==
LOC: SCSULT 11:19
PROVIDERS: ATTEND Family Medicine
DX: R22.1 Localized swelling, mass and lump, neck (principal); Z86.39 Personal history of other endocrine, nutritional and metabolic disease
CPT/HCPCS: 76536

== ENCOUNTER 2021-11-11 08:01 | Outpatient (CLI) | payer MEDICARE, OTHER | END 2021-11-11 08:02 | disposition home or self-care (01) | PROVIDERS: ATTEND Internal Medicine Gastroenterology | DX: R13.13 Dysphagia, pharyngeal phase (principal); K21.9 Gastro-esophageal reflux disease without esophagitis | CPT/HCPCS: 74230 ==

== ENCOUNTER 2022-11-24 09:50 | Day surgery (SDC) | payer MEDICARE, OTHER ==
[2022-11-23 10:33] VITALS: BMI 23.6
[2022-11-24] MEDS ORDERED: Lidocaine 1% (PF) 30 ML VIAL ONE (11:41)
[2022-11-24] MEDS ORDERED: EPINEPHrine 1 MG/ML AMP ONE (11:41)
[2022-11-24] MEDS ORDERED: Fentanyl 250 MCG/5 ML VIAL ONE (11:46)
[2022-11-24] MEDS ORDERED: Lidocaine 1% PF 5 ML VIAL ONE (11:52)
[2022-11-24] MEDS ORDERED: Dexamethasone 20 MG/5 ML VIAL ONE (11:52)
[2022-11-24] MEDS ORDERED: ePHEDrine 50 MG/ML VIAL ONE (11:52)
[2022-11-24] MEDS ORDERED: PHENYLEPHRINE-NS 100 MCG/ML 10 ML SYRINGE ONE (11:52)
[2022-11-24] MEDS ORDERED: Ondansetron PF 4 MG/2 ML Vial ONE (11:52)
[2022-11-24] MEDS ORDERED: PROPOFOL 200 MG/20 ML VIAL ONE (11:52)
[2022-11-24] MEDS ORDERED: Hydrocodone-Acetamin 15 ML UDCUP ONE (14:38)
== END 2022-11-24 14:45 | disposition home or self-care (01) ==
LOC: SDC 09:50
PROVIDERS: ATTEND Specialist
PROC: 0CB1XZX Excision of Lower Lip, External Approach, Diagnostic (ICD-10-PCS; principal; 2022-11-24)
DX: C44.02 Squamous cell carcinoma of skin of lip (principal); M19.90 Unspecified osteoarthritis, unspecified site; K21.9 Gastro-esophageal reflux disease without esophagitis; G25.0 Essential tremor; Z85.820 Personal history of malignant melanoma of skin; Z87.891 Personal history of nicotine dependence; Z79.82 Long term (current) use of aspirin; Z79.899 Other long term (current) drug therapy; Z88.5 Allergy status to narcotic agent; Z91.018 Allergy to other foods
CPT/HCPCS: 88305; 88331; 88332; J0171; J1100; J2001; J2405; J2704; J3010; J3490